=== PATIENT | male | born 1950 | race African-American/Black ===

== ENCOUNTER → 2021-12-27 | Outpatient (CLI) | payer MEDICARE ==
--- NOTE | 2021-12-27 16:56 | KCIC ---
EXAM: XR CHEST 2V 12/27/2021 1:28 PM CLINICAL INDICATION: Cough COMPARISON: Chest radiograph 08/14/2016 TECHNIQUE: PA and lateral views of the chest FINDINGS: The heart is normal in size. Lungs are well-expanded. There is linear atelectasis in the l eft lung base and perihilar region. No consolidation, pleural effusion, or pneumothorax. No acute oss eous abnormality. IMPRESSION: Mild atelectasis in the left lung base. No acute abnormality. Electronically signed by: Yani Dwyer MD (12/27/2021 4:54 PM) [id number]
== END ==
LOC: KCIC 13:26
PROVIDERS: ATTEND Family Medicine
DX: J98.11 Atelectasis (principal); R05.9 Cough, unspecified
CPT/HCPCS: 71046